=== PATIENT | female | born 1940 | race Two or more races ===

== ENCOUNTER 2018-03-13 08:30 | Inpatient (IN) | payer OTHER ==
[~2018-03-13] VITALS: Ht 152.4 cm; Wt 76.2 kg
[2018-03-13] MEDS ORDERED: XANAX2 MG PO (11:03)
[2018-03-13] MEDS ORDERED: EVISTA60 MG PO (11:04)
[2018-03-13] MEDS ORDERED: LOSARTAN POTAS100 MG PO (11:04)
[2018-03-13] MEDS ORDERED: ZOLOFT25 MG PO (11:04)
[2018-03-13] MEDS ORDERED: ZOCOR40 MG PO (11:04)
[2018-03-13] MEDS ORDERED: AMBIEN5 MG PO (11:04)
[2018-03-13] MEDS ORDERED: GLYCOTROL CAPS1 EACH PO (11:05)
[2018-03-13] MEDS ORDERED: VIT C-ROSE HIP500 MG PO (11:05)
[2018-04-05] MEDS ORDERED: DUI500 PO (08:22)
[2018-04-05] MEDS ORDERED: ELIQUIS2.5 MG PO (08:22)
[2018-04-05] MEDS ORDERED: PERCOCET 5-3251 EACH PO (08:22)
== END 2018-04-05 10:52 | DRG 470 ==
LOC: SURH 03-19 08:30 → O/R 04-02 06:05 → SURH 04-02 08:30
PROVIDERS: ADMIT Orthopaedic Surgery
PROC: 0QNF0ZZ Release Left Patella, Open Approach (ICD-10-PCS; 2018-04-02)
PROC: 0SRD0J9 Replacement of Left Knee Joint with Synthetic Substitute, Cemented, Open Approach (ICD-10-PCS; principal; 2018-04-02 13:00)
DX: M17.12 Unilateral primary osteoarthritis, left knee (principal); D62 Acute posthemorrhagic anemia; M22.12 Recurrent subluxation of patella, left knee

== ENCOUNTER 2019-05-21 07:30 | Inpatient (IN) | payer OTHER ==
[~2019-05-21] VITALS: Ht 152.4 cm; Wt 79.4 kg
[~2019-05-21 07:30] MED LIST: AMBIEN5 MG PO; DUI500 PO; ELIQUIS2.5 MG PO; EVISTA60 MG PO; GLYCOTROL CAPS1 EACH PO; LOSARTAN POTAS100 MG PO; PERCOCET 5-3251 EACH PO; VIT C-ROSE HIP500 MG PO; XANAX2 MG PO; ZOCOR40 MG PO; ZOLOFT25 MG PO
[2019-07-16] MEDS ORDERED: ZOLOFT100 MG PO (09:12)
[2019-07-16] MEDS ORDERED: ALPRAZOLAM2 MG PO (09:13)
[2019-07-16] MEDS ORDERED: MONTELUKAST SOD10 MG PO (09:14)
[2019-07-16] MEDS ORDERED: AMLODIPINE BESYL5 MG PO (09:14)
[2019-07-16] MEDS ORDERED: PENTOXIFYLLINE400 MG PO (09:19)
[2019-07-16] MEDS ORDERED: RANITIDINE HCL300 MG PO (09:20)
[2019-07-16] MEDS ORDERED: LOSARTAN-HCTZ1 EAC1 PO (09:20)
[2019-07-16] MEDS ORDERED: ATORVASTATIN CA20 MG PO (09:21)
[2019-07-16] MEDS ORDERED: MIRTAZAPINE30 MG PO (09:22)
[2019-07-17] MEDS ORDERED: DUI500 PO (16:46)
[2019-07-17] MEDS ORDERED: PERCOCET 5-3251 EACH PO (16:46)
[2019-07-17] MEDS ORDERED: ELIQUIS2.5 MG PO (16:46)
== END 2019-07-17 19:55 | DRG 470 ==
LOC: O/R 05-27 07:30 → SURH 07-15 05:57 → O/R 07-15 05:57 → SURH 07-15 11:17
PROVIDERS: ADMIT Orthopaedic Surgery
PROC: 0MNN0ZZ Release Right Knee Bursa and Ligament, Open Approach (ICD-10-PCS; 2019-07-15)
PROC: 0SRC0J9 Replacement of Right Knee Joint with Synthetic Substitute, Cemented, Open Approach (ICD-10-PCS; principal; 2019-07-15 07:00)
DX: M17.11 Unilateral primary osteoarthritis, right knee (principal); M22.11 Recurrent subluxation of patella, right knee; M85.461 Solitary bone cyst, right tibia and fibula